=== PATIENT | male | born 1950 | race Caucasian/White ===

== ENCOUNTER → 2023-06-20 | Outpatient (CLI) | payer MEDICARE ==
--- NOTE | 2023-06-20 12:04 | CT ---
EXAMINATION TYPE: CT iac wo con DATE OF EXAM: 06/20/2023 COMPARISON: None HISTORY: acute suppurative otitis media w/o rupture right ear CT DLP: 150mGycm Automated exposure control for dose reduction was used. FINDINGS: There is mild thickening of the right external auditory canal with thickening of the right tympanic membrane. Right ossicular chain is intact without evidence for mass or bony destructive proc ess. There is partial opacification of the right-sided mastoid air cells compatible with chronic mast oiditis. Left-sided mastoid air cells are well-aerated. Left-sided ossicular chain is within normal l imits. There is no evidence of suspicious surrounding soft tissue density to suggest cholesteatoma. The scutum is preserved bilaterally. The cochlea and the semicircular canals are symmetric and unrem arkable. Vestibular aqueduct and internal carotid canal appear unremarkable. Temporomandibular join ts are maintained bilaterally. IMPRESSION: 1. Thickening of the right external auditory canal and right tympanic membrane. Changes of right-side d mastoiditis.
== END | disposition home or self-care (01) ==
LOC: RADCTMAIN 10:52
PROVIDERS: ATTEND Otolaryngology
DX: H66.001 Acute suppurative otitis media without spontaneous rupture of ear drum, right ear (principal)
CPT/HCPCS: 70480